=== PATIENT | female | born 2000 | race Two or more races ===

== ENCOUNTER 2021-01-22 13:52 | Emergency (ER) | payer OTHER ==
[~2021-01-22] VITALS: Ht 160 cm; Wt 54.0 kg
[2021-01-22] MEDS ORDERED: PRENA1 TRUE CO1 EACH PO (14:06)
== END 2021-01-22 17:58 | disposition home or self-care (01) ==
LOC: ER 13:52
DX: O26.892 Other specified pregnancy related conditions, second trimester (principal); R10.2 Pelvic and perineal pain; O26.842 Uterine size-date discrepancy, second trimester; Z34.02 Encounter for supervision of normal first pregnancy, second trimester

== ENCOUNTER 2021-06-22 10:26 | Outpatient (CLI) | payer OTHER ==
[~2021-06-22 10:26] MED LIST: PRENA1 TRUE CO1 EACH PO
== END 2021-06-22 13:43 | disposition home or self-care (01) ==
LOC: NST 10:26
PROVIDERS: ATTEND Specialist
DX: Z34.83 Encounter for supervision of other normal pregnancy, third trimester (principal)

== ENCOUNTER 2021-06-30 05:15 | Inpatient (IN) | payer OTHER ==
[~2021-06-30] VITALS: Ht 160 cm; Wt 69.4 kg
== END 2021-07-02 15:12 | disposition home or self-care (01) | DRG 807 ==
LOC: OB/GYN 05:15 → LDR 05:15 → OB/GYN 18:10
PROVIDERS: ADMIT Specialist; ATTEND Specialist
PROC: 10E0XZZ Delivery of Products of Conception, External Approach (ICD-10-PCS; principal; 2021-06-30)
PROC: 0W8NXZZ Division of Female Perineum, External Approach (ICD-10-PCS; 2021-06-30)
PROC: 3E033VJ Introduction of Other Hormone into Peripheral Vein, Percutaneous Approach (ICD-10-PCS; 2021-06-30)
PROC: 4A1HXFZ Monitoring of Products of Conception, Cardiac Rhythm, External Approach (ICD-10-PCS; 2021-06-30)
DX: O66.0 Obstructed labor due to shoulder dystocia (principal); Z37.0 Single live birth; O24.420 Gestational diabetes mellitus in childbirth, diet controlled; Z3A.38 38 weeks gestation of pregnancy